=== PATIENT | male | born 1955 | race Caucasian/White ===

== ENCOUNTER 2025-07-01 12:06 | Emergency (ER) | payer OTHER, MEDICARE ==
[~2025-07-01] VITALS: Ht 162.6 cm; Wt 65.7 kg
[~2025-07-01 12:06] MED LIST: ASPI-1265 PO; CITA-178 PO; CLON-527 PO; CLOP75TA34 PO; GABA-338 PO; LISI-232 PO; METF500T PO; METO100T7 PO; MULT-1074 PO; ZOLP5TAB19 PO; [UNRECOGNIZED DRUG - CODE] PO
[2025-07-01 12:11] VITALS: TEMP 98
--- NOTE | 2025-07-01 12:28 | Physician Documentation ---
History of Present Illness General Chief Complaint: Groin Pain Stated Complaint: HERNIA Time Seen by MD: 12:23 Primary Medical Doctor: EDUARDO History of Present Illness Initial Comments 69-year-old male with complaints of right groin pain since last night patient has been told he has a an inguinal hernia. He states his pain got moderate to severe approximately 12 hours prior to arrival. The patient states he feels a bulge in his groin. Patient denies any fevers or chills. He states he took two [place] 10/325 with moderate relief he still states his pain is moderate in intensity. No nausea or vomiting or diarrhea Medication Reconciliation Allergies: Coded Allergies: No Known Allergies (Unverified , 07/01/25) Scheduled Aspirin (Aspirin), 81 MG PO DAILY, (Reported) Citalopram Hydrobromide* (Celexa*), 40 MG PO DAILY, (Reported) Clonazepam* (Klonopin*), 1 MG PO HS, (Reported) Clopidogrel Bisulfate (Clopidogrel), 75 MG PO DAILY, (Reported) Gabapentin* (Gabapentin*), 600 MG PO HS, (Reported) Lisinopril/Hydrochlorothiazide 20/12.5 MG* (Lisinopril-Hctz 20/12.5 MG*), 1 TAB PO DAILY, (Reported) Metformin Hcl* (Glucophage*), 500 MG PO BID, (Reported) Metoprolol Succinate* (Toprol Xl*), 100 MG PO DAILY, (Reported) Multivitamin (Multi-Vitamin Daily), 1 EACH PO BID, (Reported) [place]-3 Fatty Acids ([place]-3), 1,500 MG PO TID, (Reported) Zolpidem Tartrate* (Ambien*), 10 MG PO HS Past Medical History Past Medical History: CVA/TIA/Stroke, High Cholesterol, Hypertension, Diabetes Review of Systems All Other Systems at this time: Reviewed and Negative Physical Exam Physical Exam Vital Signs: Temperature: 98.0, Source: Temporal, Heart Rate: 97, Respiratory Rate: 16, BP: 179/107, Pulse Oximetry: 98, Weight: 65.700 Oxygen Flow Rate: 0 Physical Exam VITALS: Reviewed and as above. GENERAL: Alert, no apparent distress. HEENT: Normocephalic, atraumatic, PERRL, EOMI, dry mucosa, no erythema RESPIRATORY: Lungs clear, normal breath sounds, no respiratory distress. CHEST: No accessory muscle use, no retractions CV: Regular rate, rhythm, no edema, no murmur, No: JVD GI: Soft, 4 cm x 4 cm right inguinal hernia firm BACK: No CVA tenderness, or swelling MUSCULOSKELETAL: No deformities, no edema SKIN: Warm and dry, no rash NEURO: Oriented x4, No motor or sensory deficit PSYCH: Normal mood and affect, no agitation Progress Results/Orders Results/Orders Vital Signs 07/01/25 07/01/25 12:11 12:39 Temp 98.0 Pulse 97 98 Resp 16 16 B/P (MAP) 179/107 170/99 Pulse Ox 98 99 O2 Flow Rate 0 Medical Decision Making Additional information obtaine: old records, family Findings The patient with a right inguinal hernia that was firm the hernia was manually reduced without difficulty. The patient will be discharged with instructions to follow up as an outpatient return if he has worsening of his symptoms. The patient's pulse oximetry was interpreted as adequate and normal Differential Diagnosis Bowel obstruction, hydrocele, varicocele, inguinal hernia Departure Time of Disposition: 12:27 Disposition: 01 HOME / SELF CARE / HOMELESS Impression: Primary Impression: Hernia Discharge Instructions: Hernia Referrals: NO PRIMARY CARE PROVIDER (PCP) Signature Scribe Signature: No scribe Attestation: The note accurately reflects work and decisions made by me.Letha Weber MD 07/05/25 07:45 LETHA WEBER MD Jul 01, 2025 12:28
[2025-07-01 12:39] VITALS: BP 170/99; PULSE 98; RESP 16; O2SAT 99
== END 2025-07-01 12:40 | disposition home or self-care (01) ==
LOC: ER 12:06
DX: K40.90 Unilateral inguinal hernia, without obstruction or gangrene, not specified as recurrent (principal); I10 Essential (primary) hypertension; E78.00 Pure hypercholesterolemia, unspecified; E11.9 Type 2 diabetes mellitus without complications; Z86.73 Personal history of transient ischemic attack (TIA), and cerebral infarction without residual deficits; Z79.82 Long term (current) use of aspirin; Z79.899 Other long term (current) drug therapy
CPT/HCPCS: 99282